=== PATIENT | female | born 1995 | race Caucasian/White ===

== ENCOUNTER 2019-07-29 18:33 | Emergency (ER) | payer BC, OTHER ==
[~2019-07-29] VITALS: Ht 157.5 cm; Wt 72.6 kg
[2019-07-29 18:52] VITALS: BP 113/69
[2019-07-29 20:15] LABS: Basophils # (auto) 0.1 10 ^3/uL (0-0.2); Basophils % (auto) 0.5 % (0.0-2.0); Eosinophils # (auto) 0.1 10 ^3/uL (0-0.8); Eosinophils % (auto) 0.9 % (0.0-7.0); Hematocrit 42.4 % (36.0-46.0); Hemoglobin 14.2 g/dL (12.2-16.2); Lymphocytes % (auto) 18.7 % (10.0-50.0); Mean Corpuscular Hemoglobin 28.9 pg (28.0-32.0); Mean Corpuscular Hgb Conc. 33.6 g/dL (32.0-36.0); Mean Corpuscular Volume 86.1 fL (80.0-100.0); Monocytes # (auto) 0.8 10 ^3/uL (0-1.3); Monocytes % (auto) 4.7 % (0.0-12.0); Neutrophils # (auto) 12.2 10 ^3/uL (1.6-8.6); Neutrophils % (auto) 75.2 % (37.0-80.0); Nucleated Red Blood Cells % 0.1 %; Platelet Count (auto) 399 10^3/uL (140-450); Red Blood Cells 4.92 10^6/uL (4.0-5.20); Red Cell Distribution Width 13.3 % (11.8-14.3); White Blood Cell 16.2 10^3/uL (4.4-10.8)
[2019-07-29 20:34] LABS: Albumin 4.1 g/dL (3.4-5.0); Calcium 8.5 mg/dL (8.5-10.1); Potassium 3.8 mmol/L (3.5-5.1)
[2019-07-29 20:37] LABS: BUN/Creatinine Ratio 9.6; Bilirubin, Total 0.3 mg/dL (0.2-1.0); Total Protein 7.6 g/dL (6.4-8.2)
[2019-07-29 20:48] LABS: Urine Specific Gravity 1.038 (1.001-1.035)
[2019-07-29 20:49] LABS: Urine Blood 3+ /uL (Negative)
[2019-07-29 21:06] LABS: Urine Bacteria NONE SEEN /hpf (None Seen); Urine WBC 5 /hpf (0 - 5)
== END 2019-07-30 01:31 | disposition home or self-care (01) ==
LOC: ER 18:33
DX: O03.9 Complete or unspecified spontaneous abortion without complication (principal)
CPT/HCPCS: 36415; 76801; 76817; 80053; 81001; 84702; 85025